=== PATIENT | female | born 1995 | race Two or more races ===

== ENCOUNTER 2018-04-28 22:37 | Inpatient (IN) | payer SELFPAY ==
[2018-04-28 22:43] VITALS: BMI 24.8
--- NOTE | 2018-04-28 22:45 | PDOC ---
History of Present Illness - General Chief Complaint: SIRS, Suspected/Possible Stated Complaint: FEVER, SIDE PAIN, HEADACHE Time Seen by Provider: 04/28/18 22:45 - History of Present Illness Initial Comments: 04/28/18 22:58 Ms. Robert Foster is a 23 yo female w/ pmh of asthma who presents for evaluation of 3 day history of fever, headache, sore throat, and left rib pain. Patient reports she has been taking ibuprofen at home Q4HR with little relief from symptoms. Last took at 6pm. Patient takes no other medications besides a rescue inhaler PRN. Has not had the flu shot this year. The patient denies chest pain, shortness of breath, and dizziness. Denies chills , nausea, vomit, diarrhea and constipation. Denies dysuria, frequency, urgency and hematuria. Past History - Past Medical History Allergies/Adverse Reactions: Allergies Allergy/AdvReac Type Severity Reaction Status Date / Time aspirin Allergy Verified 04/28/18 22:40 Home Medications: Ambulatory Orders Ibuprofen [Motrin -] 400 mg PO Q4HWA PRN 04/29/18 Asthma: Yes COPD: No - Suicide/Smoking/Psychosocial Hx Smoking History: Never smoked Review of Systems - Review of Systems Comments:: 04/28/18 22:59 GENERAL/CONSTITUTIONAL: +3 days of fever. No weakness. HEAD, EYES, EARS, NOSE AND THROAT: +Sore throat as described. No change in vision. No ear pain or discharge. CARDIOVASCULAR: +Left lower chest pain patient localizes to ribs and reports increases with deep inspiration RESPIRATORY: No cough, wheezing, or hemoptysis. GASTROINTESTINAL: No nausea, vomiting, diarrhea or constipation. GENITOURINARY: No dysuria, frequency, or change in urination. MUSCULOSKELETAL: No joint or muscle swelling or pain. No neck or back pain. SKIN: No rash NEUROLOGIC: +Constant headache. No vertigo, loss of consciousness, or change in strength/sensation. ENDOCRINE: No increased thirst. No abnormal weight change HEMATOLOGIC/LYMPHATIC: No anemia, easy bleeding, or history of blood clots. ALLERGIC/IMMUNOLOGIC: No hives or skin allergy. *Physical Exam - Vital Signs Last Vital Signs Temp Pulse Resp BP Pulse Ox 103 F H 151 H 24 H 116/67 99 04/28/18 22:41 04/28/18 22:41 04/28/18 22:41 04/28/18 22:41 04/28/18 22:41 - Physical Exam Comments: 04/28/18 22:59 GENERAL: Awake, alert, and fully oriented, in no acute distress HEAD: No signs of trauma, normocephalic, atraumatic EYES: PERRLA, EOMI, sclera anicteric, conjunctiva clear ENT: Auricles normal inspection, hearing grossly normal, nares patent, oropharynx clear without exudates. Moist mucosa NECK: Normal ROM, supple, no lymphadenopathy, JVD, or masses LUNGS: No distress, speaks full sentences, clear to auscultation bilaterally HEART: +Tachycardic, regular rhythm, normal S1 and S2, no murmurs, rubs or gallops, peripheral pulses normal and equal bilaterally. ABDOMEN: +Left CVA tenderness, otherwsie soft, nontender, normoactive bowel sounds. No guarding, no rebound. No masses EXTREMITIES: Normal inspection, Normal range of motion, no edema. No clubbing or cyanosis. NEUROLOGICAL: Cranial nerves II through XII grossly intact. Normal speech, normal gait, no focal sensorimotor deficits SKIN: Warm, Dry, normal turgor, no rashes or lesions noted. ED Treatment Course - LABORATORY CBC & Chemistry Diagram: 04/28/18 23:14 04/28/18 23:14 Medical Decision Making - Medical Decision Making 04/29/18 00:58 Ms. Jones is a 23 yo female w/ pmh as described who presents for evaluation of symptoms concerning for pyelonephritis vs. sepsis vs. strep vs. influenza vs. PE. Patient workup started accordingly with labs as below significant for elevated lactic acid, impressive UTI, and elevated d-dimer. Patient given 2L NS , tylenol. Patient currently pending read on Chest CTA for PE r/o and Abdomen/ pelvis CT w/ contrast for evaluation of kidney. 04/29/18 01:[address] confirmatory for pyelonephritis. Patient admitted to hospitalist for IV ABX. Laboratory Results - last 24 hr 04/28/18 04/28/18 04/28/18 23:14 23:14 23:14 WBC 5.7 RBC 3.56 L Hgb 10.0 L Hct 28.9 L MCV 81.1 MCH 28.2 MCHC 34.7 RDW 13.6 Plt Count 142 MPV 8.5 Absolute Neuts (auto) 4.7 Neutrophils % 81.9 Lymphocytes % 5.1 L Monocytes % 12.6 H Eosinophils % 0.2 Basophils % 0.2 Nucleated RBC % 0 D-Dimer Sodium 136 Potassium 3.4 L Chloride 104 Carbon Dioxide 25 Anion Gap 7 L BUN 7 Creatinine 0.9 Creat Clearance w eGFR > 60 Random Glucose 174 H Lactic Acid 2.1 H Calcium 8.1 L Magnesium Total Bilirubin 0.4 AST 14 L ALT 16 Alkaline Phosphatase 91 Total Protein 6.8 Albumin 3.0 L TSH Urine Color Urine Appearance Urine pH Ur Specific [place] Urine Protein Urine Glucose (UA) Urine Ketones Urine Blood Urine Nitrite Urine Bilirubin Urine Urobilinogen Ur Leukocyte Esterase Urine WBC (Auto) Urine RBC (Auto) Ur Epithelial Cells Urine Bacteria Urine Mucus Urine HCG, Qual Influenza A (Rapid) Influenza B (Rapid) Group A Strep Rapid 04/28/18 04/28/18 04/28/18 23:14 23:14 23:15 WBC RBC Hgb Hct MCV MCH MCHC RDW Plt Count MPV Absolute Neuts (auto) Neutrophils % Lymphocytes % Monocytes % Eosinophils % Basophils % Nucleated RBC % D-Dimer 1618 H Sodium Potassium Chloride Carbon Dioxide Anion Gap BUN Creatinine Creat Clearance w eGFR Random Glucose Lactic Acid Calcium Magnesium 2.0 Total Bilirubin AST ALT Alkaline Phosphatase Total Protein Albumin TSH 1.50 Urine Color Yellow Urine Appearance Cloudy Urine pH 6.0 Ur Specific [place] 1.018 Urine Protein 3+ H Urine Glucose (UA) 1+ H Urine Ketones Negative Urine Blood Negative Urine Nitrite Negative Urine Bilirubin Negative Urine Urobilinogen 2.0 H Ur Leukocyte Esterase 2+ H Urine WBC (Auto) 202 Urine RBC (Auto) 5 Ur Epithelial Cells Rare Urine Bacteria Rare Urine Mucus Few Urine HCG, Qual Negative Influenza A (Rapid) Influenza B (Rapid) Group A Strep Rapid 04/28/18 04/28/18 23:45 23:45 WBC RBC Hgb Hct MCV MCH MCHC RDW Plt Count MPV Absolute Neuts (auto) Neutrophils % Lymphocytes % Monocytes % Eosinophils % Basophils % Nucleated RBC % D-Dimer Sodium Potassium Chloride Carbon Dioxide Anion Gap BUN Creatinine Creat Clearance w eGFR Random Glucose Lactic Acid Calcium Magnesium Total Bilirubin AST ALT Alkaline Phosphatase Total Protein Albumin TSH Urine Color Urine Appearance Urine pH Ur Specific [place] Urine Protein Urine Glucose (UA) Urine Ketones Urine Blood Urine Nitrite Urine Bilirubin Urine Urobilinogen Ur Leukocyte Esterase Urine WBC (Auto) Urine RBC (Auto) Ur Epithelial Cells Urine Bacteria Urine Mucus Urine HCG, Qual Influenza A (Rapid) Negative Influenza B (Rapid) Negative Group A Strep Rapid Negative *DC/Admit/Observation/Transfer Diagnosis at time of Disposition: Pyelonephritis - Discharge Dispostion Decision to Admit order: Yes - Referrals - Patient Instructions - Post Discharge Activity
[2018-04-28] MEDS ORDERED: ACETAMINOPHEN 1000 MG/100 ML VIAL (NON FORMULARY) IVPB ONE (22:46)
[2018-04-28] MEDS ORDERED: SODIUM CHLORIDE 1,000 ML IV STA ×2 (22:46→22:59)
--- NOTE | 2018-04-28 22:47 | PDOC ---
Attending Attestation - HPI HPI: 04/28/18 23:13 The patient is a 23-year-old female with no significant past medical history presents to the emergency department with a fever and rib pain. The patient reports shes been having a fever for the past 3 days, without relief with 400 mg of Ibuprofen, states she is taking the medication every 4-6 hours. The patient reports additional symptoms of left lower rib pain, that aggravated with palpation and a sore throat. Denies a cough, congestions, nausea, vomiting , diarrhea, dysuria, hematuria, frequency or urgency to urinate. Denies leg swelling, recent travel or sick contact. The patient denies getting her flu shot this year. Allergies: ASA. PCP: None reported. - Physicial Exam PE: 04/28/18 23:07 GENERAL: Speaking full sentence, able to tolerate PO. Awake, alert, and fully oriented, in no acute distress HEAD: No signs of trauma EYES: PERRLA, EOMI, sclera anicteric, conjunctiva clear ENT: posterior pharynx clear without erythema or exudate. Auricles normal inspection, hearing grossly normal, nares patent, oropharynx clear without exudates. Moist mucosa NECK: Normal ROM, supple, no lymphadenopathy, JVD, or masses LUNGS: +reproducible left lateral rib tenderness to palpation. Breath sounds equal, clear to auscultation bilaterally. No wheezes, and no crackles HEART: +Tachycardia. Regular rate and rhythm, normal S1 and S2, no murmurs, rubs or gallops ABDOMEN: No CVA tenderness. Soft, nontender, normoactive bowel sounds. No guarding, no rebound. No masses EXTREMITIES: No edema to the leg. Normal range of motion, no edema. No clubbing or cyanosis. No cords, erythema, or tenderness NEUROLOGICAL: Cranial nerves II through XII grossly intact. Normal speech, normal gait SKIN: Warm, Dry, normal turgor, no rashes or lesions noted. - Medical Decision Making 04/28/18 23:07 Documentation prepared by Maddi Figueroa, acting as emergency medical technician/driver for Sachi Stout DO. <Maddi Figueroa - Last Filed: 04/28/18 23:13> - Resident Resident Name: Altaf Lorenzo - ED Attending Attestation I have performed the following: I have examined & evaluated the patient, The case was reviewed & discussed with the resident, I agree w/resident's findings & plan, Exceptions are as noted - Medical Decision Making 04/28/18 22:47 I, Dr. Sachi Stout, DO, attest that this document has been prepared under my direction and personally reviewed by me in its entirety. I further attest, that it accurately reflects all work, treatment, procedures and medical decision -making performed by me. 04/28/18 22:58 a/p: 23yo female with 3 days of fever, L lower rib pain, and sore throat -no exudates or erythema to throat -did not have the flu vaccine this year -will send labs, flu swab, cultures, strep swab, ekg, cxr, ua, ucx, ucg -will give ivf hydration -pt took motrin at 6p tonight -will give tylenol -will send dimer given pleuritic component of the pain -will send tsh -will monitor and reassess 04/28/18 23:40 pt with a UTI on labs - rocephin order <Sachi Stout - Last Filed: 04/28/18 23:56> Heart Score/ECG Review - ECG Intrepretation Comment:: 04/28/18 23:56 sinus tach at 124, nl axis, nl interval, no acute st/t wave findings <Sachi Stout - Last Filed: 04/28/18 23:56>
[2018-04-28 23:25] LABS: BASO % 0.2 % (0-2.0); EOS % 0.2 % (0-4.5); HEMATOCRIT 28.9 % (32.4-45.2); LYMPH % 5.1 % (8-40); MCH 28.2 pg (25.7-33.7); MCHC 34.7 g/dl (32.0-36.0); MEAN CELL VOLUME 81.1 fl (80-96); MEAN PLT VOLUME 8.5 fl (7.5-11.1); MONO % 12.6 % (3.8-10.2); NEUT % 81.9 % (42.8-82.8); PLATELET COUNT 142 K/MM3 (134-434); RBC 3.56 M/mm3 (3.60-5.2); RDW 13.6 % (11.6-15.6); WHITE BLOOD COUNT 5.7 K/mm3 (4.0-10.0)
[2018-04-28 23:26] LABS: URINE APPEARANCE CLOUDY; URINE BILIRUBIN NEGATIVE (<2.0 mg/dL); URINE COLOR YELLOW; URINE GLUCOSE (UA) 1+ (NEGATIVE); URINE KETONE NEGATIVE (NEGATIVE); URINE LEUK ESTERASE 2+ (NEGATIVE); URINE NITRITE NEGATIVE (NEGATIVE); URINE PROTEIN 3+ (NEGATIVE)
[2018-04-28 23:28] LABS: HCG,QUALITATIVE URINE Negative
[2018-04-28 23:33] LABS: EPI CELLS RARE /HPF (FEW); URINE BACTERIA RARE /hpf (NONE SEEN); URINE MUCUS FEW
[2018-04-28] MEDS ORDERED: CEFTRIAXONE 1 GM in DEXTROSE 5%-WATER - 100 ML IVPB ONE (23:40)
[2018-04-28 23:45] LABS: ALK PHOS 91 U/L (45-117); ANION GAP 7 MMOL/L (8-16); BILIRUBIN,TOTAL 0.4 mg/dL (0.2-1); BLOOD UREA NITROGEN 7 mg/dL (7-18); CALCIUM 8.1 mg/dL (8.5-10.1); CHLORIDE 104 mmol/L (98-107); CO2 25 mmol/L (21-32); CREATININE 0.9 mg/dL (0.55-1.3); GLUCOSE,RANDOM 174 mg/dL (74-106); POTASSIUM 3.4 mmol/L (3.5-5.1); SGOT/AST 14 U/L (15-37); SGPT/ALT 16 U/L (13-61); SODIUM 136 mmol/L (136-145); TOT PROT 6.8 g/dl (6.4-8.2)
[2018-04-28] MEDS ORDERED: CEFTRIAXONE 1 GM/50 ML BAG ONE (23:49)
[2018-04-28] MEDS ORDERED: ACETAMINOPHEN INJECTION 100 ML IVPB ONE (23:49)
[2018-04-29] MEDS ORDERED: ACETAMINOPHEN 325 MG TABLET (FP) PO PRN (02:39)
[2018-04-29] MEDS ORDERED: CEFTRIAXONE 2 GM in DEXTROSE 5%-WATER 100 ML IVPB ONE (02:40)
--- NOTE | 2018-04-29 02:42 | HP ---
CHIEF COMPLAINT: Fever, chills, rib pain PCP: none HISTORY OF PRESENT ILLNESS: The patient is a 23 yo f w/ PMH Asthma who comes into the ED c/o a 3 day history of fever, headache and left sided flank pain. Patient is unable to describe the pain, just states that it is exacerbated by waking and talking and alleviated by lying still. Patient denies dysuria, urgency, frequency, sick contacts. LMP 2 weeks ago ER course was notable for: (1) CT showing left sided pyleonephritis (2) WBC WNL, potassium 3.4, LA 2.1 -> 1.0 (3) UA showing 2+ leuks and 202 WBC Recent Travel: none PAST MEDICAL HISTORY: see HPI PAST SURGICAL HISTORY: none Social History: Smoking: denies Alcohol: denies Drugs: denies Family History: non-contributory Allergies aspirin Allergy (Verified 04/28/18 22:40) HOME MEDICATIONS: Home Medications Medication Instructions Recorded Ibuprofen [Motrin -] 400 mg PO Q4HWA PRN 04/29/18 REVIEW OF SYSTEMS CONSTITUTIONAL: Absent: fever, chills, diaphoresis, generalized weakness, malaise, loss of appetite, weight change HEENT: Absent: rhinorrhea, nasal congestion, throat pain, throat swelling, difficulty swallowing, mouth swelling, ear pain, eye pain, visual changes CARDIOVASCULAR: Absent: chest pain, syncope, palpitations, irregular heart rate, lightheadedness , peripheral edema RESPIRATORY: Absent: cough, shortness of breath, dyspnea with exertion, orthopnea, wheezing, stridor, hemoptysis GASTROINTESTINAL: Absent: abdominal pain, abdominal distension, nausea, vomiting, diarrhea, constipation, melena, hematochezia GENITOURINARY: Absent: dysuria, frequency, urgency, hesitancy, hematuria, genital pain MUSCULOSKELETAL: Absent: myalgia, arthralgia, joint swelling, back pain, neck pain SKIN: Absent: rash, itching, pallor HEMATOLOGIC/IMMUNOLOGIC: Absent: easy bleeding, easy bruising, lymphadenopathy, frequent infections ENDOCRINE: Absent: unexplained weight gain, unexplained weight loss, heat intolerance, cold intolerance NEUROLOGIC: Absent: headache, focal weakness or paresthesias, dizziness, unsteady gait, seizure, mental status changes, bladder or bowel incontinence PSYCHIATRIC: Absent: anxiety, depression, suicidal or homicidal ideation, hallucinations. PHYSICAL EXAMINATION Vital Signs - 24 hr 11/04/29/18 04/29/18 22:41 01:10 01:35 Temperature 103 F H 98.8 F Pulse Rate 151 H Pulse Rate [ 106 H Right Radial] Respiratory 24 H 16 Rate Blood Pressure 116/67 Blood Pressure 100/66 141/106 H [Right Arm] O2 Sat by Pulse 99 100 Oximetry (%) GENERAL: Awake, alert, and fully oriented, in no acute distress. HEAD: Normal with no signs of trauma. EYES: Pupils equal, round and reactive to light, extraocular movements intact, sclera anicteric, conjunctiva clear. No lid lag. NECK: Normal range of motion, supple without lymphadenopathy, JVD, or masses. LUNGS: Breath sounds equal, clear to auscultation bilaterally. No wheezes, and no crackles. No accessory muscle use. HEART: Regular rate and rhythm, normal S1 and S2 without murmur, rub or gallop. ABDOMEN: Soft, nontender, not distended, normoactive bowel sounds, no guarding, no rebound, no masses. No hepatomegaly or splenomegaly. No suprapubic tenderness. No CVA tenderness. Patient tender to palpation along the left flank. Pain is reproducible. LOWER EXTREMITIES: 2+ pulses, warm, well-perfused. No calf tenderness. No peripheral edema. NEUROLOGICAL: Cranial nerves II-X intact. Normal speech. Strength 5/5 b/l PSYCHIATRIC: Cooperative. Good eye contact. Appropriate mood and affect. SKIN: Warm, dry, normal turgor, no rashes or lesions noted, normal capillary refill. Laboratory Results - last 24 hr 04/28/18 04/28/18 04/28/18 23:14 23:14 23:14 WBC 5.7 RBC 3.56 L Hgb 10.0 L Hct 28.9 L MCV 81.1 MCH 28.2 MCHC 34.7 RDW 13.6 Plt Count 142 MPV 8.5 Absolute Neuts (auto) 4.7 Neutrophils % 81.9 Lymphocytes % 5.1 L Monocytes % 12.6 H Eosinophils % 0.2 Basophils % 0.2 Nucleated RBC % 0 D-Dimer Sodium 136 Potassium 3.4 L Chloride 104 Carbon Dioxide 25 Anion Gap 7 L BUN 7 Creatinine 0.9 Creat Clearance w eGFR > 60 Random Glucose 174 H Lactic Acid 2.1 H Calcium 8.1 L Magnesium Total Bilirubin 0.4 AST 14 L ALT 16 Alkaline Phosphatase 91 Total Protein 6.8 Albumin 3.0 L TSH Urine Color Urine Appearance Urine pH Ur Specific [place] Urine Protein Urine Glucose (UA) Urine Ketones Urine Blood Urine Nitrite Urine Bilirubin Urine Urobilinogen Ur Leukocyte Esterase Urine WBC (Auto) Urine RBC (Auto) Ur Epithelial Cells Urine Bacteria Urine Mucus Urine HCG, Qual Influenza A (Rapid) Influenza B (Rapid) Group A Strep Rapid 04/28/18 04/28/18 04/28/18 23:14 23:14 23:15 WBC RBC Hgb Hct MCV MCH MCHC RDW Plt Count MPV Absolute Neuts (auto) Neutrophils % Lymphocytes % Monocytes % Eosinophils % Basophils % Nucleated RBC % D-Dimer 1618 H Sodium Potassium Chloride Carbon Dioxide Anion Gap BUN Creatinine Creat Clearance w eGFR Random Glucose Lactic Acid Calcium Magnesium 2.0 Total Bilirubin AST ALT Alkaline Phosphatase Total Protein Albumin TSH 1.50 Urine Color Yellow Urine Appearance Cloudy Urine pH 6.0 Ur Specific [place] 1.018 Urine Protein 3+ H Urine Glucose (UA) 1+ H Urine Ketones Negative Urine Blood Negative Urine Nitrite Negative Urine Bilirubin Negative Urine Urobilinogen 2.0 H Ur Leukocyte Esterase 2+ H Urine WBC (Auto) 202 Urine RBC (Auto) 5 Ur Epithelial Cells Rare Urine Bacteria Rare Urine Mucus Few Urine HCG, Qual Negative Influenza A (Rapid) Influenza B (Rapid) Group A Strep Rapid 04/28/18 04/28/18 04/29/18 23:45 23:45 01:00 WBC RBC Hgb Hct MCV MCH MCHC RDW Plt Count MPV Absolute Neuts (auto) Neutrophils % Lymphocytes % Monocytes % Eosinophils % Basophils % Nucleated RBC % D-Dimer Sodium Potassium Chloride Carbon Dioxide Anion Gap BUN Creatinine Creat Clearance w eGFR Random Glucose Lactic Acid 1.0 Calcium Magnesium Total Bilirubin AST ALT Alkaline Phosphatase Total Protein Albumin TSH Urine Color Urine Appearance Urine pH Ur Specific [place] Urine Protein Urine Glucose (UA) Urine Ketones Urine Blood Urine Nitrite Urine Bilirubin Urine Urobilinogen Ur Leukocyte Esterase Urine WBC (Auto) Urine RBC (Auto) Ur Epithelial Cells Urine Bacteria Urine Mucus Urine HCG, Qual Influenza A (Rapid) Negative Influenza B (Rapid) Negative Group A Strep Rapid Negative ASSESSMENT/PLAN: The patient is a 23 yo f w/ PMH asthma who comes into the ED c/o a 3 days history of flank pain and fevers. CT showed pyelo. #Flank pain and fevers 2/2 acute pyelonephritis -s/p 1 g rocephin in ED -will c/w 1g rocephin daily -NS @ 100 x 2 bags #FEN -NS @ 100 x 2 bags -lytes WNL -regular diet #Prophy -lovenox 40mg SQ daily #Dispo -admit med surg Visit type - Emergency Visit Emergency Visit: Yes ED Registration Date: 04/29/18 Care time: The patient presented to the Emergency Department on the above date and was hospitalized for further evaluation of their emergent condition. - New Patient This patient is new to me today: Yes Date on this admission: 04/29/18 - Critical Care Critical Care patient: No
[2018-04-29] MEDS ORDERED: SODIUM CHLORIDE 1,000 ML IV SCH (02:45)
--- NOTE | 2018-04-29 02:56 | PN ---
Teaching Attending Note Name of Resident: Sekou Sheets ATTENDING PHYSICIAN STATEMENT I saw and evaluated the patient. I reviewed the resident's note and discussed the case with the resident. I agree with the resident's findings and plan as documented. SUBJECTIVE: Patient is a 23-year-old woman with PMH of asthma who presents to the ER with a fever and left flank pain. The patient reports shes been having a fever for the past 3 days, without relief with 400 mg of Ibuprofen, states she is taking the medication every 4-6 hours. The patient reports additional symptoms of left lower rib/flank pain, that aggravated with palpation and walking. Has a sore throat but denies pleurisy. Denies a cough, congestions, nausea, vomiting, diarrhea, dysuria, hematuria, frequency or urgency to urinate. Denies leg swelling, recent travel or sick contact. Her LMP was 2 weeks ago. Works at [employer], single and has no children. Nonsmoker and no drug use. The patient denies getting her flu shot this year. OBJECTIVE: Alert Vital Signs Period Temp Pulse Resp BP Sys/[place] Pulse Ox Last 24 Hr 98.8 F-103 F 106-151 16-24 100-141/66-106 99-100 HEENT: No Jaundice, eye redness or discharge, PERRLA, EOMI. Normocephalic, atraumatic. External ears are normal and hearing is grossly intact. No nasal discharge. Neck: Supple, nontender. No palpable adenopathy or thyromegaly. No JVD Chest: Good effort. Clear to auscultation and percussion. Heart: Regular. No S3, rub or murmur Abdomen: Not distended, soft, left CVA tenderness and no HSM. No rebound or guarding. Normoactive bowel sounds. Ext: Peripheral pulses intact. No leg edema. Skin: Warm and dry. No petechiae, rash or ecchymosis. Neuro: Alert. Oriented x3. CN 2-12 grossly intact. Sensation grossly intact in all four extremities and DTR are symmetric. Current Medications Generic Name Dose Route Start Last Admin Trade Name Freq PRN Reason Stop Dose Admin Acetaminophen 650 mg 04/29/18 02:39 Tylenol - PO Q6H PRN PAIN LEVEL 1-5 AND/OR FEVER Heparin Sodium (Porcine) 5,000 unit 04/29/18 06:00 Heparin - SQ TID GIOVANI Sodium Chloride 1,000 mls @ 100 mls/hr 04/29/18 02:45 Normal Saline - IV ASDIR GIOVANI Ceftriaxone Sodium 2 gm/ 100 mls @ 100 mls/hr 04/29/18 02:40 Dextrose IVPB 04/29/18 03:39 ONCE ONE Home Medications Medication Instructions Recorded Ibuprofen [Motrin -] 400 mg PO Q4HWA PRN 04/29/18 Abnormal Lab Results 04/28/18 04/28/18 04/28/18 23:14 23:14 23:14 RBC 3.56 L Hgb 10.0 L Hct 28.9 L Lymphocytes % 5.1 L Monocytes % 12.6 H D-Dimer Potassium 3.4 L Anion Gap 7 L Random Glucose 174 H Lactic Acid 2.1 H Calcium 8.1 L AST 14 L Albumin 3.0 L Urine Protein Urine Glucose (UA) Urine Urobilinogen Ur Leukocyte Esterase 04/28/18 04/28/18 23:14 23:15 RBC Hgb Hct Lymphocytes % Monocytes % D-Dimer 1618 H Potassium Anion Gap Random Glucose Lactic Acid Calcium AST Albumin Urine Protein 3+ H Urine Glucose (UA) 1+ H Urine Urobilinogen 2.0 H Ur Leukocyte Esterase 2+ H ASSESSMENT AND PLAN: 1. Sepsis due to pyelonephritis - Treat with IV Rocephin, IV NS and trend lactic acid. Urine and blood culture sent. Hypokalemia is unexplained - check Mg + and give PO KCL. 2. Anemia - Rule out uterine fibroids. Do basic anemia work up including serial stool guaiacs, reticulocyte count and iron studies. Would benefit from high quality oral iron tablets. 2. DVT prophylaxis - Lovenox 40 mg SQ q 24 hours. 3. Advance directives - Full code
[2018-04-29] MEDS ORDERED: CEFTRIAXONE 1 GM in DEXTROSE 5%-WATER - 50 ML IVPB ONE (03:15)
[2018-04-29] MEDS ORDERED: POTASSIUM CHLORIDE TABS 20 MEQ TABLET.ER (FP) PO ONE ×2 (03:27→03:32)
[2018-04-29] MEDS ORDERED: ENOXAPARIN NA (PORCINE) 40 MG/0.4 ML DISP.SYRIN SQ ONE ×2 (03:28→04:02)
[2018-04-29] MEDS ORDERED: CEFTRIAXONE 1 GM/50 ML BAG ONE (03:32)
[2018-04-29] MEDS ORDERED: ACETAMINOPHEN 325 MG TABLET (FP) ONE (05:27)
[2018-04-29] MEDS: ACETAMINOPHEN 325 MG TABLET (FP) PO PRN ×2 (05:30→23:04)
[2018-04-29 05:54] LABS: HEMATOCRIT 30.5 % (32.4-45.2); HEMOGLOBIN 9.9 GM/dL (10.7-15.3); MCH 26.6 pg (25.7-33.7); MCHC 32.4 g/dl (32.0-36.0); MEAN PLT VOLUME 8.9 fl (7.5-11.1); PLATELET COUNT 128 K/MM3 (134-434); RBC 3.72 M/mm3 (3.60-5.2); RDW 13.9 % (11.6-15.6); WHITE BLOOD COUNT 4.7 K/mm3 (4.0-10.0)
[2018-04-29] MEDS ORDERED: HEPARIN NA (PORCINE) 5,000 UNITS/ML 1ML VIAL SQ SCH (06:00)
[2018-04-29 06:46] LABS: ANION GAP 6 MMOL/L (8-16); BLOOD UREA NITROGEN 4 mg/dL (7-18); CALCIUM 7.3 mg/dL (8.5-10.1); CHLORIDE 108 mmol/L (98-107); CO2 23 mmol/L (21-32); CREATININE 0.7 mg/dL (0.55-1.3); GLUCOSE,RANDOM 157 mg/dL (74-106); PHOSPHOROUS 2.2 mg/dL (2.5-4.9); POTASSIUM 3.7 mmol/L (3.5-5.1); SODIUM 138 mmol/L (136-145)
--- NOTE | 2018-04-29 10:55 | EKG ---
Test Reason : Blood Pressure : / mmHG Vent. Rate : 124 BPM Atrial Rate : 124 BPM P-R Int : 122 ms QRS Dur : 072 ms QT Int : 280 ms P-R-T Axes : 045 041 030 degrees QTc Int : 402 ms SINUS TACHYCARDIA OTHERWISE NORMAL ECG NO PREVIOUS ECGS AVAILABLE Confirmed by GEOVANNY PETERSON MD ([id number]) on 04/29/2018 10:54:39 AM Referred By: Confirmed By:GEOVANNY PETERSON MD
[2018-04-29] MEDS ORDERED: VANCOMYCIN 1 GRAM (PRE-DOCKED) 1,000 MG/250 ML BAG IVPB ONE ×2 (16:45→18:45)
[2018-04-29] MEDS ORDERED: VANCOMYCIN 1,000 MG in DEXTROSE 5%-WATER - 250 ML IVPB SCH (16:45)
[2018-04-29] MEDS: SODIUM CHLORIDE 1,000 ML IV SCH ×3 (16:45→21:16)
[2018-04-29] MEDS ORDERED: PIPERACILLIN/TAZOB 4.5 GM 4.5 GM in DEXTROSE 5%-WATER 100 ML IVPB SCH (20:00)
--- NOTE | 2018-04-29 20:02 | PN ---
Progress Note, Physician Chief Complaint: 23 y/o F admitted for fever and left flank pain x 3days, found to have pyelonephritis and gram neg bacilli in 1/2 blood cultures. Pt treated with ceftriaxone in ED. She was also given 1G vancomycin. As discussed with ID Dr. Weiss pt will be switched to Zosyn 4.5G Q8hrs. Patient reports feeling dizziness and weak when evaluated in ED. IV fluids increased to 200ml/hr - Current Medication List Current Medications: Active Medications Acetaminophen (Tylenol -) 650 mg PO Q6H PRN PRN Reason: PAIN LEVEL 1-5 AND/OR FEVER Last Admin: 04/29/18 05:30 Dose: 650 mg Sodium Chloride (Normal Saline -) 1,000 mls @ 200 mls/hr IV ASDIR GIOVANI Last Admin: 04/29/18 16:45 Dose: 200 mls/hr Piperacillin Sod/Tazobactam (Sod 4.5 gm/ Dextrose) 100 mls @ 200 mls/hr IVPB Q8H-IV GIOVANI; Protocol - Objective Vital Signs: Vital Signs Temperature 98.0 F 04/29/18 15:44 Pulse Rate 68 04/29/18 15:44 Respiratory Rate 18 04/29/18 15:44 Blood Pressure 102/68 04/29/18 15:44 O2 Sat by Pulse Oximetry (%) 98 04/29/18 15:44 Constitutional: Yes: Well Nourished, Calm, Mild Distress Eyes: Yes: Conjunctiva Clear, PERRL HENT: Yes: Atraumatic, Normocephalic Neck: Yes: Supple Cardiovascular: Yes: Regular Rate and Rhythm Respiratory: Yes: Regular, CTA Bilaterally Gastrointestinal: Yes: Normal Bowel Sounds, Soft ...Rectal Exam: Yes: Deferred Genitourinary: Yes: CVA Tenderness - Left Musculoskeletal: Yes: Back Pain Extremities: Yes: WNL Edema: No Peripheral Pulses WNL: Yes Integumentary: Yes: WNL Neurological: Yes: Alert, Oriented ...Motor Strength: WNL Psychiatric: Yes: Alert, Oriented Labs: CBC, BMP 04/29/18 05:22 04/29/18 05:22 - ....Imaging Cat Scan: Report Reviewed (Chest CT 04/29: no evidence of PE CT abd and pelvis 04/29: Left kidney pyelonephritis. no evidence of renal mass. Suspected right hepatic hemangioma with multiple additional small cysts.) Problem List - Problems (1) Bacteremia Assessment/Plan: Switch Ceftriaxone to zosyn 4.5G w8hrs s/p Vanco 1G x 1 dose daily blood cultures until clear IV fuids 200ml/hr x1L, then 150ml/hr x 2L encourage PO fluids and regular diet Code(s): R78.81 - BACTEREMIA (2) Pyelonephritis Assessment/Plan: f/u ucx for final speciation PRN tylenol for temp > 101.0 trend WBC and fever curve sepsis protocol Code(s): N12 - TUBULO-INTERSTITIAL NEPHRITIS, NOT SPCF ACUTE OR CHRONIC Impression/Plan Impression/Plan: DISPO: Full code OOB to chair as tolerated PPX Bowel regimen with senna colace Visit type - Emergency Visit Emergency Visit: Yes ED Registration Date: 04/29/18 Care time: The patient presented to the Emergency Department on the above date and was hospitalized for further evaluation of their emergent condition. - New Patient This patient is new to me today: Yes Date on this admission: 04/29/18 - Critical Care Critical Care patient: No - Discharge Referral Referred to [facility] Med P.C.: No
[2018-04-29] MEDS ORDERED: ONDANSETRON 4 MG TABLET PO PRN (20:09)
[2018-04-29] MEDS ORDERED: DOCUSATE SODIUM 100 MG CAPSULE (FP) PO PRN (20:09)
[2018-04-29 20:42] LABS: BASO % 0.4 % (0-2.0); EOS % 0.4 % (0-4.5); HEMATOCRIT 25.7 % (32.4-45.2); LYMPH % 17.1 % (8-40); MCH 28.1 pg (25.7-33.7); MCHC 34.9 g/dl (32.0-36.0); MEAN CELL VOLUME 80.5 fl (80-96); MONO % 16.4 % (3.8-10.2); NEUT % 65.7 % (42.8-82.8); PLATELET COUNT 138 K/MM3 (134-434); RDW 13.9 % (11.6-15.6); WHITE BLOOD COUNT 3.6 K/mm3 (4.0-10.0)
[2018-04-29] MEDS ORDERED: PIPERACILLIN/TAZOBACTAM 4.5 GM VIAL IVPB ONE (21:01)
[2018-04-29] MEDS ORDERED: DEXTROSE 5%-WATER 100 ML IVPB ONE (21:01)
[2018-04-29 21:04] LABS: INR 1.34 (0.83-1.09); PROTHROMBIN TIME (PATIENT) 15.8 SEC (9.7-13.0)
[2018-04-29 21:07] LABS: ACTIVATED PTT 30.2 SECONDS (25.2-36.5)
[2018-04-29] MEDS: HEPARIN NA (PORCINE) 5,000 UNITS/ML 1ML VIAL SQ SCH (21:14)
[2018-04-29] MEDS: PIPERACILLIN/TAZOB 4.5 GM 4.5 GM in DEXTROSE 5%-WATER 100 ML IVPB SCH (21:15)
[2018-04-29] MEDS: SENNOSIDES 8.6MG TABLET (FP) PO SCH (21:17)
[2018-04-29 21:22] LABS: ALBUMIN 2.5 g/dl (3.4-5.0); ALK PHOS 74 U/L (45-117); ANION GAP 8 MMOL/L (8-16); BILIRUBIN,TOTAL 0.4 mg/dL (0.2-1); BLOOD UREA NITROGEN 3 mg/dL (7-18); CALCIUM 7.5 mg/dL (8.5-10.1); CHLORIDE 110 mmol/L (98-107); CO2 21 mmol/L (21-32); CREATININE 0.6 mg/dL (0.55-1.3); GLUCOSE,RANDOM 119 mg/dL (74-106); POTASSIUM 3.3 mmol/L (3.5-5.1); SGOT/AST 18 U/L (15-37); SGPT/ALT 23 U/L (13-61); SODIUM 139 mmol/L (136-145); TOT PROT 5.8 g/dl (6.4-8.2)
[2018-04-29 21:30] LABS: OVALOCYTE 1+
[2018-04-29 21:31] LABS: PLATELET ESTIMATE DECREASED
[2018-04-29] MEDS ORDERED: CEFTRIAXONE 1 GM in DEXTROSE 5%-WATER - 50 ML IVPB SCH (22:00)
[2018-04-30] MEDS ORDERED: DEXTROSE 5%-WATER 100 ML IVPB ONE (02:55)
[2018-04-30] MEDS ORDERED: PIPERACILLIN/TAZOBACTAM 4.5 GM VIAL IVPB ONE (02:55)
[2018-04-30] MEDS: PIPERACILLIN/TAZOB 4.5 GM 4.5 GM in DEXTROSE 5%-WATER 100 ML IVPB SCH (03:38)
[2018-04-30] MEDS: SODIUM CHLORIDE 1,000 ML IV SCH ×2 (04:51→18:14)
[2018-04-30 07:25] LABS: VENOUS PC02 42.8 mmHg (38-52); VENOUS PH 7.32 (7.32-7.42); VENOUS PO2 44.4 mmHg (28-48)
[2018-04-30 07:56] LABS: ANION GAP 7 MMOL/L (8-16); BLOOD UREA NITROGEN 4 mg/dL (7-18); CALCIUM 7.9 mg/dL (8.5-10.1); CHLORIDE 110 mmol/L (98-107); CO2 23 mmol/L (21-32); CREATININE 0.7 mg/dL (0.55-1.3); GLUCOSE,RANDOM 99 mg/dL (74-106); PHOSPHOROUS 2.6 mg/dL (2.5-4.9); POTASSIUM 3.6 mmol/L (3.5-5.1); SODIUM 140 mmol/L (136-145)
[2018-04-30 08:56] LABS: BASO % 0.3 % (0-2.0); HEMOGLOBIN 9.6 GM/dL (10.7-15.3); LYMPH % 21.3 % (8-40); MCHC 34.3 g/dl (32.0-36.0); MEAN CELL VOLUME 81.7 fl (80-96); MEAN PLT VOLUME 9.7 fl (7.5-11.1); MONO % 14.1 % (3.8-10.2); NEUT % 63.3 % (42.8-82.8); PLATELET COUNT 148 K/MM3 (134-434); RBC 3.42 M/mm3 (3.60-5.2); WHITE BLOOD COUNT 3.9 K/mm3 (4.0-10.0)
[2018-04-30] MEDS: HEPARIN NA (PORCINE) 5,000 UNITS/ML 1ML VIAL SQ SCH ×3 (10:37→22:20)
--- NOTE | 2018-04-30 11:37 | PN ---
Progress Note (short form) - Note Progress Note: ID Consult dictated Acute L pyelonephritis Gram negative bacteremia secondary to source Await c/s Continue empiric zosyn
--- NOTE | 2018-04-30 12:52 | CONS ---
DATE OF CONSULTATION: DATE OF DICTATION: 04/30/2018 INFECTIOUS DISEASE CONSULTATION The patient is a 23-year-old previously healthy female evaluated for acute pyelonephritis. She presented to the hospital on April 29, 2018, with a 3-day history of worsening left-sided flank pain and rib pain, fever. Patient described the pain as stabbing in nature and worsening with ambulation. She medicated herself with Ibuprofen with some relief. She presented to the emergency room where her temperature was 103. Urinalysis showed many white cells. CAT scan of the abdomen and pelvis showed changes consistent with acute left pyelonephritis. She was empirically treated with ceftriaxone and Zosyn. At the present time, she is awake and alert. She continues to complain of intermittent left-sided flank pain. She denies any dysuria, hematuria, urgency, or frequency. Denies prior history of urinary tract infection. No recent hospitalizations. No recent antibiotics. No history of resistant urinary tract pathogens. PAST MEDICAL HISTORY: Positive for asthma. ALLERGIES: TO ASPIRIN. LABORATORY DATA: White count 3.9 and 63% neutrophils, hematocrit 28.0, platelet count 148. Creatinine 0.7. Liver enzymes normal. PHYSICAL EXAMINATION: General: She is awake and alert, in no acute distress. Vital Signs: Temperature 99.4, T-max 102.5, blood pressure 110/58, pulse 94 regular, respirations 18 per minute. Eyes: Sclerae anicteric. Heart: Sounds S1, S2. Lungs: Clear. Abdomen: There is some left-sided abdominal tenderness and left flank CVA tenderness. Extremities: Negative for edema. IMPRESSION: 1. Acute left pyelonephritis. 2. Gram-negative bacteremia secondary to genitourinary source. 3. Leukopenia, possible secondary to sepsis. Await culture results. Continue empiric Zosyn. IV fluids. Thank you for the kind referral. BERENICE CAMP M.D. [id number]
[2018-04-30] MEDS ORDERED: PIPERACILLIN/TAZOBACTAM 3.375 GM VIAL IVPB ONE ×2 (13:40→17:24)
[2018-04-30] MEDS ORDERED: DEXTROSE 5%-WATER - 50 ML IVPB ONE ×2 (13:40→17:24)
[2018-04-30] MEDS: PIPERACILLIN/TAZOB 3.375 GM 3.375 GM in DEXTROSE 5%-WATER - 50 ML IVPB SCH ×2 (14:30→18:14)
[2018-04-30] MEDS: ACETAMINOPHEN 325 MG TABLET (FP) PO PRN (18:09)
--- NOTE | 2018-04-30 19:00 | PN ---
Physical Exam: SUBJECTIVE: Patient seen and examined at the bedside. In no acute distress. OBJECTIVE: Vital Signs Period Temp Pulse Resp BP Sys/Arevalo Pulse Ox Last 24 Hr 99.3 F-101.8 F 18-114 18-20 95-128/57-80 98-100 GENERAL: The patient is awake, alert, and fully oriented, in no acute distress. HEAD: Normal with no signs of trauma. EYES: PERRL, extraocular movements intact, sclera anicteric, conjunctiva clear. No ptosis. ENT: Ears normal, nares patent, oropharynx clear without exudates, moist mucous membranes. NECK: Trachea midline, full range of motion, supple. LUNGS: Breath sounds equal, clear to auscultation bilaterally, no wheezes, no crackles, no accessory muscle use. HEART: Regular rate and rhythm ABDOMEN: Soft, nontender, nondistended, normoactive bowel sounds, no guarding, no rebound, no hepatosplenomegaly, no masses. EXTREMITIES: no edema. NEUROLOGICAL:Normal speech, gait not observed. PSYCH: Normal mood, normal affect. SKIN: Warm, dry, normal turgor, no rashes or lesions note Laboratory Results - last 24 hr 04/29/18 04/29/18 04/29/18 20:10 20:10 20:10 WBC 3.6 L RBC 3.20 L Hgb 9.0 L Hct 25.7 L D MCV 80.5 MCH 28.1 MCHC 34.9 RDW 13.9 Plt Count 138 MPV 9.0 Absolute Neuts (auto) 2.3 Total Counted 100 Neutrophils % 65.7 Neutrophils % (Manual) 61.0 Band Neutrophils % 4.0 Lymphocytes % 17.1 D Lymphocytes % (Manual) 19.0 Monocytes % 16.4 H Monocytes % (Manual) 13 H Eosinophils % 0.4 D Basophils % 0.4 Nucleated RBC % 0 Hypochromia 1+ Platelet Estimate Decreased Platelet Comment No clumping noted Microcytosis 1+ Ovalocytes 1+ ESR PT with INR 15.80 H INR 1.34 H PTT (Actin FS) 30.2 VBG pH POC VBG pCO2 POC VBG pO2 Mixed VBG HCO3 Sodium 139 Potassium 3.3 L Chloride 110 H Carbon Dioxide 21 Anion Gap 8 BUN 3 L Creatinine 0.6 Creat Clearance w eGFR > 60 Random Glucose 119 H Lactic Acid Calcium 7.5 L Phosphorus Magnesium Total Bilirubin 0.4 AST 18 ALT 23 Alkaline Phosphatase 74 C-Reactive Protein 15.9 H Total Protein 5.8 L Albumin 2.5 L 04/29/18 04/30/18 04/30/18 20:10 06:45 06:45 WBC RBC Hgb Hct MCV MCH MCHC RDW Plt Count MPV Absolute Neuts (auto) Total Counted Neutrophils % Neutrophils % (Manual) Band Neutrophils % Lymphocytes % Lymphocytes % (Manual) Monocytes % Monocytes % (Manual) Eosinophils % Basophils % Nucleated RBC % Hypochromia Platelet Estimate Platelet Comment Microcytosis Ovalocytes ESR 101 H PT with INR INR PTT (Actin FS) VBG pH 7.32 POC VBG pCO2 42.8 POC VBG pO2 44.4 Mixed VBG HCO3 21.6 Sodium Potassium Chloride Carbon Dioxide Anion Gap BUN Creatinine Creat Clearance w eGFR Random Glucose Lactic Acid 0.6 Calcium Phosphorus Magnesium Total Bilirubin AST ALT Alkaline Phosphatase C-Reactive Protein Total Protein Albumin 04/30/18 04/30/18 06:45 06:45 WBC 3.9 L RBC 3.42 L Hgb 9.6 L Hct 28.0 L MCV 81.7 MCH 28.0 MCHC 34.3 RDW 14.0 Plt Count 148 MPV 9.7 Absolute Neuts (auto) 2.5 Total Counted Neutrophils % 63.3 Neutrophils % (Manual) Band Neutrophils % Lymphocytes % 21.3 D Lymphocytes % (Manual) Monocytes % 14.1 H Monocytes % (Manual) Eosinophils % 1.0 D Basophils % 0.3 Nucleated RBC % 0 Hypochromia Platelet Estimate Platelet Comment Microcytosis Ovalocytes ESR PT with INR INR PTT (Actin FS) VBG pH POC VBG pCO2 POC VBG pO2 Mixed VBG HCO3 Sodium 140 Potassium 3.6 Chloride 110 H Carbon Dioxide 23 Anion Gap 7 L BUN 4 L Creatinine 0.7 Creat Clearance w eGFR > 60 Random Glucose 99 Lactic Acid Calcium 7.9 L Phosphorus 2.6 Magnesium 2.0 Total Bilirubin AST ALT Alkaline Phosphatase C-Reactive Protein Total Protein Albumin Active Medications Generic Name Dose Route Start Last Admin Trade Name Freq PRN Reason Stop Dose Admin Acetaminophen 650 mg 04/29/18 02:39 04/30/18 18:09 Tylenol - PO 650 mg Q6H PRN Administration PAIN LEVEL 1-5 AND/OR FEVER Docusate Sodium 100 mg 04/29/18 20:09 Colace - PO BID PRN CONSTIPATION Heparin Sodium (Porcine) 5,000 unit 04/29/18 22:00 04/30/18 10:37 Heparin - SQ 5,000 unit BID GIOVANI Administration Piperacillin Sod/Tazobactam 50 mls @ 100 mls/hr 04/30/18 11:45 04/30/18 18:14 Sod 3.375 gm/ Dextrose IVPB 100 mls/hr Q8H-IV GIOVANI Administration Protocol Sodium Chloride 1,000 mls @ 100 mls/hr 04/30/18 13:41 04/30/18 18:14 Normal Saline - IV 100 mls/hr ASDIR GIOVANI Administration Ondansetron HCl 8 mg 04/29/18 20:09 Zofran - PO Q8H PRN NAUSEA Senna 1 tab 04/29/18 22:00 04/29/18 21:17 Senna - PO 1 tab HS GIOVANI Administration ASSESSMENT/PLAN: Patient is a 23 year old female with a past medical history of asthma who comes into the ED c/o a 3 day history of fever, headache and left sided flank pain. In the ER a CT shows left sided pyleonephritis. labs revealed lactic acid 2.1 with UA +2 leuks and 202 wbc. ID: Acute Pyleonephritis Ct scan shows left sided pylenoephritis. Still with fevers, and flank pain Started on Zosyn per ID. previously on Rocephin NS @100cc/hr Monitor output, labs, vitals. Bacteremia. + gram neg bacilli in 1 blood cultures bottle throat and urine culture pending organism. On zosyn. repeat blood cultures. Pulm: Asthma, not in exacerbation duonebs prn fen ns @ 100cc/hr monitor electrolytes low salt diet prophy heparin bid full code Visit type - Emergency Visit Emergency Visit: Yes ED Registration Date: 04/29/18 Care time: The patient presented to the Emergency Department on the above date and was hospitalized for further evaluation of their emergent condition. - New Patient This patient is new to me today: Yes Date on this admission: 04/30/18 - Critical Care Critical Care patient: No - Discharge Referral Referred to [facility] Med P.C.: No
[2018-04-30] MEDS: SENNOSIDES 8.6MG TABLET (FP) PO SCH (22:17)
[2018-05-01] MEDS ORDERED: PIPERACILLIN/TAZOBACTAM 3.375 GM VIAL IVPB ONE ×2 (02:07→09:35)
[2018-05-01] MEDS ORDERED: DEXTROSE 5%-WATER - 50 ML IVPB ONE ×2 (02:08→09:35)
[2018-05-01] MEDS: PIPERACILLIN/TAZOB 3.375 GM 3.375 GM in DEXTROSE 5%-WATER - 50 ML IVPB SCH ×2 (02:15→10:02)
[2018-05-01] MEDS: ACETAMINOPHEN 325 MG TABLET (FP) PO PRN ×2 (02:30→20:09)
[2018-05-01 08:15] LABS: BASO % 0.5 % (0-2.0); EOS % 1.3 % (0-4.5); HEMATOCRIT 25.7 % (32.4-45.2); HEMOGLOBIN 8.4 GM/dL (10.7-15.3); LYMPH % 32.9 % (8-40); MCH 26.4 pg (25.7-33.7); MCHC 32.6 g/dl (32.0-36.0); MEAN PLT VOLUME 8.7 fl (7.5-11.1); MONO % 21.8 % (3.8-10.2); NEUT % 43.5 % (42.8-82.8); PLATELET COUNT 138 K/MM3 (134-434); RBC 3.17 M/mm3 (3.60-5.2); RDW 13.9 % (11.6-15.6); WHITE BLOOD COUNT 3.3 K/mm3 (4.0-10.0)
[2018-05-01 08:35] LABS: ALBUMIN 2.2 g/dl (3.4-5.0); ALK PHOS 63 U/L (45-117); ANION GAP 8 MMOL/L (8-16); BILIRUBIN,TOTAL 0.3 mg/dL (0.2-1); BLOOD UREA NITROGEN 3 mg/dL (7-18); CALCIUM 7.5 mg/dL (8.5-10.1); CHLORIDE 109 mmol/L (98-107); CO2 23 mmol/L (21-32); CREATININE 0.5 mg/dL (0.55-1.3); GLUCOSE,RANDOM 90 mg/dL (74-106); MAGNESIUM 1.9 mg/dL (1.8-2.4); POTASSIUM 3.4 mmol/L (3.5-5.1); SGOT/AST 18 U/L (15-37); SGPT/ALT 24 U/L (13-61); SODIUM 140 mmol/L (136-145); TOT PROT 5.5 g/dl (6.4-8.2)
[2018-05-01] MEDS: HEPARIN NA (PORCINE) 5,000 UNITS/ML 1ML VIAL SQ SCH (10:01)
--- NOTE | 2018-05-01 10:24 | PN ---
Physical Exam: SUBJECTIVE: Patient seen and examined at the bedside. Febrile overnight, but reports to be feeling better. OBJECTIVE: Vital Signs Period Temp Pulse Resp BP Sys/Arevalo Pulse Ox Last 24 Hr 98.3 F-100.5 F 18-114 18-20 99-128/55-80 100 GENERAL: The patient is awake, alert, and fully oriented, in no acute distress. HEAD: Normal with no signs of trauma. EYES: PERRL, extraocular movements intact, sclera anicteric, conjunctiva clear. No ptosis. ENT: Ears normal, nares patent, oropharynx clear without exudates, moist mucous membranes. NECK: Trachea midline, full range of motion, supple. LUNGS: Breath sounds equal, clear to auscultation bilaterally, no wheezes, no crackles, no accessory muscle use. HEART: Regular rate and rhythm ABDOMEN: Soft, nontender, nondistended, normoactive bowel sounds, no guarding, no rebound, no hepatosplenomegaly, no masses. EXTREMITIES: no edema. NEUROLOGICAL:Normal speech, gait not observed. PSYCH: Normal mood, normal affect. SKIN: Warm, dry, normal turgor, no rashes or lesions note Laboratory Results - last 24 hr 04/30/18 05/01/18 05/01/18 06:45 07:15 07:15 WBC 3.3 L RBC 3.17 L Hgb 8.4 L Hct 25.7 L MCV 81.0 MCH 26.4 MCHC 32.6 RDW 13.9 Plt Count 138 MPV 8.7 D Absolute Neuts (auto) 1.4 L Neutrophils % 43.5 D Lymphocytes % 32.9 D Monocytes % 21.8 H Eosinophils % 1.3 Basophils % 0.5 Nucleated RBC % 0 ESR 101 H Sodium 140 Potassium 3.4 L Chloride 109 H Carbon Dioxide 23 Anion Gap 8 BUN 3 L Creatinine 0.5 L Creat Clearance w eGFR > 60 Random Glucose 90 Calcium 7.5 L Magnesium 1.9 Total Bilirubin 0.3 AST 18 ALT 24 Alkaline Phosphatase 63 Total Protein 5.5 L Albumin 2.2 L Active Medications Generic Name Dose Route Start Last Admin Trade Name Freq PRN Reason Stop Dose Admin Acetaminophen 650 mg 04/29/18 02:39 05/01/18 02:30 Tylenol - PO 650 mg Q6H PRN Administration PAIN LEVEL 1-5 AND/OR FEVER Docusate Sodium 100 mg 11/26/18 20:09 Colace - PO BID PRN CONSTIPATION Heparin Sodium (Porcine) 5,000 unit 04/29/18 22:00 05/01/18 10:01 Heparin - SQ Not Given BID GIOVANI Piperacillin Sod/Tazobactam 50 mls @ 100 mls/hr 04/30/18 11:45 05/01/18 10:02 Sod 3.375 gm/ Dextrose IVPB 100 mls/hr Q8H-IV GIOVANI Administration Protocol Sodium Chloride 1,000 mls @ 100 mls/hr 04/30/18 13:41 04/30/18 18:14 Normal Saline - IV 100 mls/hr ASDIR GIOVANI Administration Ondansetron HCl 8 mg 04/29/18 20:09 Zofran - PO Q8H PRN NAUSEA Senna 1 tab 04/29/18 22:00 04/30/18 22:17 Senna - PO 1 tab HS GIOVANI Administration ASSESSMENT/PLAN: Patient is a 23 year old female with a past medical history of asthma who comes into the ED c/o a 3 day history of fever, headache and left sided flank pain. In the ER a CT shows left sided pyleonephritis. labs revealed lactic acid 2.1 with UA +2 leuks and 202 wbc. ID: Acute Pyleonephritis Ct scan shows left sided pylenoephritis. Still with fevers, and flank pain, but reports improvement. On Cefazolin. continue with NS @100cc/hr Monitor output, labs, vitals. Bacteremia. + gram neg bacilli in 1 blood cultures bottle throat and urine culture pending organism. repeat blood cultures pending Heme: Anemia: monitor daily cbc. No signs of bleeding Will d/c heparin patient has received >5 liters of ivf since admission, likely dilutional, but will continue to trend. Leukopenia @ 3.3. monitor with daily cbc. Pulm: Asthma, not in exacerbation duonebs prn fen ns @ 100cc/hr monitor electrolytes low salt diet prophy SCDs full code Visit type - Emergency Visit Emergency Visit: Yes ED Registration Date: 04/29/18 Care time: The patient presented to the Emergency Department on the above date and was hospitalized for further evaluation of their emergent condition. - New Patient This patient is new to me today: No - Critical Care Critical Care patient: No - Discharge Referral Referred to [facility] Med P.C.: No
[2018-05-01 11:42] LABS: ANISOCYTOSIS 2+; MACROCYTOSIS 0; OVALOCYTE 2+; PLATELET ESTIMATE DECREASED
--- NOTE | 2018-05-01 12:15 | PN ---
Progress Note, Physician History of Present Illness: Had fever 101 and shaking chills at 3am C/O sweats No L flank pain at present No dysuria/ hematuria Leukopenic - Current Medication List Current Medications: Active Medications Acetaminophen (Tylenol -) 650 mg PO Q6H PRN PRN Reason: PAIN LEVEL 1-5 AND/OR FEVER Last Admin: 05/01/18 02:30 Dose: 650 mg Docusate Sodium (Colace -) 100 mg PO BID PRN PRN Reason: CONSTIPATION Heparin Sodium (Porcine) (Heparin -) 5,000 unit SQ BID GIOVANI Last Admin: 05/01/18 10:01 Dose: Not Given Piperacillin Sod/Tazobactam (Sod 3.375 gm/ Dextrose) 50 mls @ 100 mls/hr IVPB Q8H-IV GIOVANI; Protocol Last Admin: 05/01/18 10:02 Dose: 100 mls/hr Sodium Chloride (Normal Saline -) 1,000 mls @ 100 mls/hr IV ASDIR GIOVANI Last Admin: 04/30/18 18:14 Dose: 100 mls/hr Ondansetron HCl (Zofran -) 8 mg PO Q8H PRN PRN Reason: NAUSEA Senna (Senna -) 1 tab PO HS GIOVANI Last Admin: 04/30/18 22:17 Dose: 1 tab - Objective Vital Signs: Vital Signs Temperature 98.3 F 05/01/18 06:00 Pulse Rate 83 05/01/18 06:00 Respiratory Rate 20 05/01/18 06:00 Blood Pressure 99/61 05/01/18 06:00 O2 Sat by Pulse Oximetry (%) 100 04/30/18 21:00 Constitutional: Yes: No Distress, Diaphoresis Cardiovascular: Yes: Regular Rate and Rhythm, S1, S2 Respiratory: Yes: CTA Bilaterally Gastrointestinal: Yes: Normal Bowel Sounds, Soft. No: Tenderness Genitourinary: No: CVA Tenderness - Left, CVA Tenderness - Right Edema: No Labs: CBC, BMP 05/01/18 07:15 05/01/18 07:15 INR, PTT INR 1.34 (0.83-1.09) H 04/29/18 20:10 Assessment/Plan L pyelonephritis Gram Negative sepsis Leukopenia/ anemia Substitute cefazolin 2gm q8h HIV testing if status unknown
[2018-05-01] MEDS: CEFAZOLIN 2 GM/D5W 2 GM/50 ML ML IVPB SCH ×2 (14:40→18:22)
[2018-05-01] MEDS: SODIUM CHLORIDE 1,000 ML IV SCH (18:23)
[2018-05-01] MEDS ORDERED: POTASSIUM CHLORIDE TABS 20 MEQ TABLET.ER (FP) PO ONE (18:30)
[2018-05-01] MEDS: SENNOSIDES 8.6MG TABLET (FP) PO SCH (22:41)
[2018-05-02] MEDS: CEFAZOLIN 2 GM/D5W 2 GM/50 ML ML IVPB SCH ×3 (01:14→18:53)
[2018-05-02 07:28] LABS: BASO % 0.4 % (0-2.0); EOS % 1.9 % (0-4.5); HEMATOCRIT 27.3 % (32.4-45.2); HEMOGLOBIN 8.8 GM/dL (10.7-15.3); LYMPH % 34.7 % (8-40); MCH 26.5 pg (25.7-33.7); MCHC 32.3 g/dl (32.0-36.0); MEAN PLT VOLUME 8.4 fl (7.5-11.1); MONO % 14.1 % (3.8-10.2); NEUT % 48.9 % (42.8-82.8); PLATELET COUNT 188 K/MM3 (134-434); RBC 3.33 M/mm3 (3.60-5.2); RDW 14.2 % (11.6-15.6); WHITE BLOOD COUNT 4.4 K/mm3 (4.0-10.0)
[2018-05-02 08:13] LABS: ALBUMIN 2.4 g/dl (3.4-5.0); ALK PHOS 65 U/L (45-117); ANION GAP 5 MMOL/L (8-16); BILIRUBIN,TOTAL 0.3 mg/dL (0.2-1); BLOOD UREA NITROGEN 3 mg/dL (7-18); CALCIUM 8.1 mg/dL (8.5-10.1); CHLORIDE 108 mmol/L (98-107); CO2 27 mmol/L (21-32); CREATININE 0.6 mg/dL (0.55-1.3); GLUCOSE,RANDOM 86 mg/dL (74-106); MAGNESIUM 2.2 mg/dL (1.8-2.4); POTASSIUM 4.1 mmol/L (3.5-5.1); SGOT/AST 20 U/L (15-37); SGPT/ALT 25 U/L (13-61); SODIUM 140 mmol/L (136-145); TOT PROT 6.2 g/dl (6.4-8.2)
--- NOTE | 2018-05-02 17:19 | PN ---
Physical Exam: SUBJECTIVE: Patient seen and examined at the bedside. states she is feeling better. eager to go home. OBJECTIVE: denies any chills or malaise, low grade temps overnight, tmax 100.8f iron studies pending Vital Signs Period Temp Pulse Resp BP Sys/Arevalo Pulse Ox Last 24 Hr 97.9 F-100.8 F 70-98 16-20 104-136/57-72 100-100 GENERAL: The patient is awake, alert, and fully oriented, in no acute distress. HEAD: Normal with no signs of trauma. EYES: PERRL, extraocular movements intact, sclera anicteric, conjunctiva clear. No ptosis. ENT: Ears normal, nares patent, oropharynx clear without exudates, moist mucous membranes. NECK: Trachea midline, full range of motion, supple. LUNGS: Breath sounds equal, clear to auscultation bilaterally, no wheezes, no crackles, no accessory muscle use. HEART: Regular rate and rhythm ABDOMEN: Soft, nontender, nondistended, normoactive bowel sounds, no guarding, no rebound, no hepatosplenomegaly, no masses. EXTREMITIES: no edema. NEUROLOGICAL:Normal speech, gait not observed. PSYCH: Normal mood, normal affect. SKIN: Warm, dry, normal turgor, no rashes or lesions note Laboratory Results - last 24 hr 05/01/18 05/02/18 05/02/18 07:15 06:00 06:00 WBC 4.4 RBC 3.33 L Hgb 8.8 L Hct 27.3 L MCV 82.0 MCH 26.5 MCHC 32.3 RDW 14.2 Plt Count 188 D MPV 8.4 Absolute Neuts (auto) 2.1 Neutrophils % 48.9 Lymphocytes % 34.7 Monocytes % 14.1 H Eosinophils % 1.9 Basophils % 0.4 Nucleated RBC % 0 Sodium 140 140 Potassium 3.4 L 4.1 Chloride 109 H 108 H Carbon Dioxide 23 27 Anion Gap 8 5 L BUN 3 L 3 L Creatinine 0.5 L 0.6 Creat Clearance w eGFR > 60 > 60 Random Glucose 90 86 Calcium 7.5 L 8.1 L Magnesium 1.9 2.2 Ferritin 51.5 Total Bilirubin 0.3 0.3 AST 18 20 ALT 24 25 Alkaline Phosphatase 63 65 Total Protein 5.5 L 6.2 L Albumin 2.2 L 2.4 L Active Medications Generic Name Dose Route Start Last Admin Trade Name Scottq PRN Reason Stop Dose Admin Acetaminophen 650 mg 04/29/18 02:39 05/01/18 20:09 Tylenol - PO 650 mg Q6H PRN Administration PAIN LEVEL 1-5 AND/OR FEVER Docusate Sodium 100 mg 04/29/18 20:09 Colace - PO BID PRN CONSTIPATION Sodium Chloride 1,000 mls @ 100 mls/hr 04/30/18 13:41 05/01/18 18:23 Normal Saline - IV 100 mls/hr ASDIR GIOVANI Administration Cefazolin Sodium/Dextrose 2 gm in 50 mls @ 100 mls/hr 05/01/18 12:45 10:53 Ancef 2 Gm Premixed Ivpb - IVPB 100 mls/hr Q8H-IV GIOVANI Administration Ondansetron HCl 8 mg 04/29/18 20:09 Zofran - PO Q8H PRN NAUSEA Senna 1 tab 04/29/18 22:00 05/01/18 22:41 Senna - PO 1 tab HS GIOVANI Administration ASSESSMENT/PLAN: Patient is a 23 year old female with a past medical history of asthma who comes into the ED c/o a 3 day history of fever, headache and left sided flank pain. In the ER a CT shows left sided pyleonephritis. labs revealed lactic acid 2.1 with UA +2 leuks and 202 wbc. She is being admitted for IV antibiotics. ID: Acute Pyleonephritis/Ct scan shows left sided pylenoephritis. tmax 100.8, denies flank pain. stable vital signs On Cefazolin per ID. continue with NS @100cc/hr Monitor output, labs, vitals. Bacteremia. + gram neg bacilli in 1 blood cultures bottle, UC with e coli, throat culture with beta heme strep repeat blood cultures pending repeat ua ordered. Heme: Anemia: monitor daily cbc. No signs of bleeding, not menstruating patient has received >5 liters of ivf since admission, likely dilutional, but will continue to trend. iron studies ordered and pending. Leukopenia @ 3.3>4.4 monitor with daily cbc. Pulm: Asthma, not in exacerbation duonebs prn fen ns @ 100cc/hr monitor electrolytes low salt diet prophy SCDs full code Visit type - Emergency Visit Emergency Visit: Yes ED Registration Date: 04/29/18 Care time: The patient presented to the Emergency Department on the above date and was hospitalized for further evaluation of their emergent condition. - New Patient This patient is new to me today: No - Critical Care Critical Care patient: No - Discharge Referral Referred to [facility] Med P.C.: No
[2018-05-02] MEDS: SODIUM CHLORIDE 1,000 ML IV SCH (18:53)
[2018-05-02] MEDS: SENNOSIDES 8.6MG TABLET (FP) PO SCH (21:41)
[2018-05-03 00:58] LABS: URINE APPEARANCE CLEAR; URINE BILIRUBIN NEGATIVE (<2.0 mg/dL); URINE COLOR STRAW; URINE GLUCOSE (UA) NEGATIVE (NEGATIVE); URINE KETONE NEGATIVE (NEGATIVE); URINE LEUK ESTERASE TRACE (NEGATIVE); URINE NITRITE NEGATIVE (NEGATIVE); URINE PROTEIN NEGATIVE (NEGATIVE); URINE UROBILINOGEN NEGATIVE mg/dL (0.2-1.0)
[2018-05-03 01:08] LABS: EPI CELLS RARE /HPF (FEW); URINE MUCUS RARE
[2018-05-03] MEDS: CEFAZOLIN 2 GM/D5W 2 GM/50 ML ML IVPB SCH ×3 (01:49→17:35)
[2018-05-03 08:08] LABS: SERUM IRON SATURATION 9 % (15-55); TOTAL IRON BINDING CAPACITY 212 ug/dL (250-450); UIBC 192 ug/dL (131-425)
[2018-05-03 15:39] VITALS: BP 109/74; PULSE 52; TEMP 98.4
--- NOTE | 2018-05-03 16:02 | DS ---
Physical Exam: SUBJECTIVE: Patient seen and examined at the bedside. feels well, denies pain. denies malaise. wants to go home. OBJECTIVE: discussed with Dr Call, ID. patient to be discharged home on Levaquin 750mg daily x 7 days. medications called into her pharmacy. Vital Signs Period Temp Pulse Resp BP Sys/Arevalo Pulse Ox Last 24 Hr 97.9 F-98.7 F 52-98 18-20 100-136/57-74 100-100 PHYSICAL EXAM GENERAL: The patient is awake, alert, and fully oriented, in no acute distress. HEAD: Normal with no signs of trauma. EYES: PERRL, extraocular movements intact, sclera anicteric, conjunctiva clear. No ptosis. ENT: Ears normal, nares patent, oropharynx clear without exudates, moist mucous membranes. NECK: Trachea midline, full range of motion, supple. LUNGS: Breath sounds equal, clear to auscultation bilaterally, no wheezes, no crackles, no accessory muscle use. HEART: Regular rate and rhythm ABDOMEN: Soft, nontender, nondistended, normoactive bowel sounds, no guarding, no rebound, no hepatosplenomegaly, no masses. EXTREMITIES: no edema. NEUROLOGICAL:Normal speech, gait not observed. PSYCH: Normal mood, normal affect. SKIN: Warm, dry, normal turgor, no rashes or lesions note LABS Laboratory Results - last 24 hr 05/02/18 05/03/18 06:00 00:10 Iron 20 L TIBC 212 L Iron Saturation 9 L Urine Color Straw Urine Appearance Clear Urine pH 7.0 Ur Specific [place] 1.010 Urine Protein Negative Urine Glucose (UA) Negative Urine Ketones Negative Urine Blood Negative Urine Nitrite Negative Urine Bilirubin Negative Urine Urobilinogen Negative Ur Leukocyte Esterase Trace Urine WBC (Auto) 4 Urine RBC (Auto) 1 Ur Epithelial Cells Rare Urine Mucus Rare HOSPITAL COURSE: Patient is a 23 year old female with a past medical history of asthma who comes into the ED c/o a 3 day history of fever, headache and left sided flank pain. In the ER a CT shows left sided pyleonephritis. labs revealed lactic acid 2.1 with UA +2 leuks and 202 wbc. She was being admitted for IV antibiotics. ID: Acute Pyleonephritis/Ct scan shows left sided pylenoephritis. No fevers x 48 hours, denies flank pain. vitals signs stable. patient refusing morning lab draw. Blood cultures negative Patient treated with IV antibiotics during hospitalization. Will be transitioned to Levaquin 750mg daily for 7 more days. patient to follow up outpatient with the clinic. referrals given. Bacteremia. repeat blood cultures negative. Heme: Anemia, iron studies consistent with iron deficiency anemia. Started on Iron supplements. Hematology follow up recommended. Leukopenia, WBC now stable. Pulm: Asthma, not in exacerbation Date of Admission:04/29/18 Date of Discharge: 05/03/18 Minutes to complete discharge: 60 Discharge Summary Reason For Visit: PYELONEPHRITIS Current Active Problems Bacteremia (Acute) Pyelonephritis (Acute) Condition: Improved - Instructions Diet, Activity, Other Instructions: Mrs Jones: You were admitted on 04/29/2018 for left kidney infection (pyelonephritis). You have been treated with IV antibiotics and we will be sending you home on Levaquin 750mg daily for 7 more days. Here are our recommendations: #Kidney infection (Pyleonephritis). We did a CT scan that showed you had a left sided kidney infection. We treated you with antibiotics intravenously and we will sending you home on Levaquin 750mg tables DAILY for 7 days. Start taking the pills tomorrow 2017 until 05/10/2018. This will complete your treatment. You will also need to establish a primary care doctor that you can follow up with. We have referred you to the [facility] follow up clinic located at [address] [place] [address] (Once your leave [facility], make a left at the light and the clinic is to your right hand side). You can also see Dr. Leonel Kovacs who is affiliated with our hospital and she also takes patient for follow up visits. Her information is enclosed and she is also located at [address] [place] [address], 2nd floor, [facility]. It is important that you follow up with a physician. Please return to the ER if your symptoms return or if you develop a fever or shaking chills. You will also need to hydrate with 8-10 cups of water per day. #Anemia Your blood work notes anemia. We started you on iron pills. A photovoltaic technician is a doctor that specializes in anemia. Please follow up with the one we referred you to. If you have questions, please call me at the following number: Ar[facility] [employer] [phone] [facility] I can be reached between the hours of 7a and 7pm. Thank you for allowing us to care for you. Referrals: Esdras Gonzales MD [Staff Physician] - Madie Maria MD [Staff Physician] - Tal Mukherjee MD [Staff Physician] - Disposition: HOME - Home Medications Comprehensive Discharge Medication List: Ambulatory Orders Ibuprofen [Motrin -] 400 mg PO Q4HWA PRN 04/29/18 This patient is new to me today: No Emergency Visit: Yes ED Registration Date: 04/29/18 Care time: The patient presented to the Emergency Department on the above date and was hospitalized for further evaluation of their emergent condition. Critical Care patient: No - Discharge Referral Referred to [facility] Med P.C.: No
[2018-05-03] MEDS: SODIUM CHLORIDE 1,000 ML IV SCH (17:35)
[2018-05-04] MEDS ORDERED: FERROUS SO4 325 MG TABLET (FP) PO SCH (10:00)
== END 2018-05-03 19:20 | disposition home or self-care (01) | DRG 463 ==
LOC: JER 22:37 → JERBED 04-29 00:56 → J8W 04-29 18:45
PROVIDERS: ADMIT Internal Medicine; ATTEND Nurse Practitioner Family
DX: N10 Acute pyelonephritis (principal); R78.81 Bacteremia; D50.9 Iron deficiency anemia, unspecified; E87.6 Hypokalemia; J45.909 Unspecified asthma, uncomplicated; D72.819 Decreased white blood cell count, unspecified
CPT/HCPCS: 36415; 71275-TC; 74177-TC; 80048; 80053; 81003; 81015; 82728; 82803; 83540; 83550; 83605; 83735; 84100; 84443; 84484; 84703; 85025; 85027; 85379; 85610; 85651; 85730; 86140; 87040; 87070; 87086; 87186; 87804; 87880; 93005; 93010; 99285-25; J0131; J1644; J7030